=== PATIENT | female | born 1945 | race Caucasian/White ===

== ENCOUNTER 2018-04-18 18:21 | Outpatient (REF) | payer MEDICARE, SELFPAY ==
[2018-04-18 19:21] LABS: HCT 36.1 % (36.0-46.0); HGB 11.6 g/dL (12.0-15.5); Mean Corp. HGB Concentration 32.1 g/dL (32.0-36.0); Mean Corpuscular Hemoglobin 31.1 pg (27.0-33.0); Mean Corpuscular Volume 96.8 fL (80-95); Platelet Count 250 x1000/uL (130-400); RBC 3.73 m/cumm (4.00-5.20); RBC Distribution Width 13.3 % (11.7-14.6)
[2018-04-18 19:37] LABS: ALT 26 U/L (12-78); AST 25 U/L (15-37); Albumin 3.7 g/dL (3.4-5.0); Alkaline Phosphatase 120 U/L (46-116); Anion Gap 9.7 mmol/L (3-11); BUN 39 mg/dL (7-18); Bilirubin, Total 0.3 mg/dL (0.2-1.0); CO2 27.3 mmol/L (21.0-32.0); CREATININE 1.25 mg/dL (0.55-1.02); Calcium 9.2 mg/dL (8.5-10.1); Chloride 103 mmol/L (98-107); Estimated GFR 42.13 (mL/min/1.73m2); Glucose 133 mg/dL (70-100); Potassium 4.3 mmol/L (3.5-5.1); Sodium 140 mmol/L (136-145); TSH 4.64 uIU/mL (0.358-3.74); Total Protein 7.5 g/dL (6.4-8.2)
[2018-04-22 11:21] LABS: AFP Tumor Marker <2.0 ng/mL (<8.1)
== END 2018-04-18 18:41 ==
LOC: NCHCN 18:21
PROVIDERS: PCP Internal Medicine; Visit Provider Internal Medicine
DX: E11.9 Type 2 diabetes mellitus without complications (principal); C22.0 Liver cell carcinoma; N39.0 Urinary tract infection, site not specified; F32.9 Major depressive disorder, single episode, unspecified; H53.2 Diplopia
CPT/HCPCS: 80053; 85027; 82105; 84443; 87086

== ENCOUNTER 2018-08-23 12:13 | Outpatient (REF) | payer MEDICARE, SELFPAY ==
[2018-08-23 20:12] LABS: Anion Gap 8.8 mmol/L (3-11); BUN 31 mg/dL (7-18); CO2 25.2 mmol/L (21.0-32.0); CREATININE 1.26 mg/dL (0.55-1.02); Calcium 8.9 mg/dL (8.5-10.1); Chloride 108 mmol/L (98-107); Estimated GFR 41.63 (mL/min/1.73m2); Glucose 195 mg/dL (70-100); Potassium 4.2 mmol/L (3.5-5.1); Sodium 142 mmol/L (136-145); TSH 3.72 uIU/mL (0.358-3.74); Vitamin B12 1293 pg/mL (193-986)
== END 2018-08-23 12:33 ==
LOC: NCHCN 12:13
PROVIDERS: PCP Internal Medicine; Visit Provider Internal Medicine
DX: I10 Essential (primary) hypertension (principal); E03.9 Hypothyroidism, unspecified; R25.2 Cramp and spasm
CPT/HCPCS: 80048; 82607; 83735; 84443

== ENCOUNTER 2019-07-08 11:02 | Outpatient (REF) | payer MEDICARE, SELFPAY ==
[2019-07-08 19:46] LABS: Abs Immature Grans 0.04 k/cumm (0.0-0.09); Absolute Basophil Count 0.01 k/cumm (0.0-0.2); Absolute Eosinophil Count 0.03 k/cumm (0.0-0.7); Absolute Monocyte Count 0.57 k/cumm (0.11-0.7); Absolute Neutrophil Count 6.11 k/cumm (1.2-6.7); Basophils % 0.1; Eosinophils % 0.4; HGB 11.2 g/dL (12.0-15.5); Immature Grans % 0.5 %; Lymphocytes % 11.7; Mean Corp. HGB Concentration 31.1 g/dL (32.0-36.0); Mean Corpuscular Hemoglobin 30.7 pg (27.0-33.0); Mean Corpuscular Volume 98.6 fL (80-95); Mean Platelet Volume 10.1 fL (8.0-11.0); Monocytes % 7.4; Neutrophils % 79.9; Platelet Count 322 x1000/uL (130-400); RBC 3.65 m/cumm (4.00-5.20); RBC Distribution Width 14.1 % (11.7-14.6); White Blood Cell Count 7.66 k/cumm (4.4-10.8)
[2019-07-08 19:54] LABS: ALT 20 U/L (14-59); AST 18 U/L (15-37); Albumin 3.5 g/dL (3.4-5.0); Alkaline Phosphatase 106 U/L (46-116); Anion Gap 8.1 mmol/L (3-11); BUN 27 mg/dL (7-18); Bilirubin, Total 0.3 mg/dL (0.2-1.0); CO2 27.9 mmol/L (21.0-32.0); CREATININE 1.63 mg/dL (0.55-1.02); Calcium 8.8 mg/dL (8.5-10.1); Chloride 104 mmol/L (98-107); Estimated GFR 30.84 (mL/min/1.73m2); Glucose 161 mg/dL (74-106); Sodium 140 mmol/L (136-145); Total Protein 6.8 g/dL (6.4-8.2)
[2019-07-08 20:49] LABS: Hemoglobin A1C 6.4 % (3.8-5.6)
== END 2019-07-08 11:22 ==
LOC: NCHCN 11:02
PROVIDERS: PCP Internal Medicine; Visit Provider Physician Assistant
DX: E11.9 Type 2 diabetes mellitus without complications (principal); C22.0 Liver cell carcinoma; K76.0 Fatty (change of) liver, not elsewhere classified
CPT/HCPCS: 80053; 83036; 85025

== ENCOUNTER 2019-09-17 14:47 | Outpatient (REF) | payer MEDICARE, SELFPAY ==
[2019-09-17 21:21] LABS: ALT 24 U/L (14-59); AST 20 U/L (15-37); Albumin 3.4 g/dL (3.4-5.0); Alkaline Phosphatase 104 U/L (46-116); Bilirubin, Direct 0.15 mg/dL (0.00-0.20); Bilirubin, Total 0.3 mg/dL (0.2-1.0); Total Protein 6.5 g/dL (6.4-8.2)
== END 2019-09-17 15:07 ==
LOC: NCHCN 14:47
PROVIDERS: PCP Internal Medicine; Visit Provider Internal Medicine
DX: R10.30 Lower abdominal pain, unspecified (principal); E86.0 Dehydration; I87.2 Venous insufficiency (chronic) (peripheral)
CPT/HCPCS: 80076

== ENCOUNTER 2019-11-19 17:55 | Outpatient (REF) | payer MEDICARE, SELFPAY ==
[2019-11-20 12:13] LABS: COMMENT (LAB VIEW ONLY) 168.49 mg/dL; Microalb ug/mg Crea 44.5 ug/mg Cr
== END 2019-11-19 18:15 ==
LOC: NCHCN 17:55
PROVIDERS: PCP Internal Medicine; Visit Provider Internal Medicine
DX: E11.9 Type 2 diabetes mellitus without complications (principal)
CPT/HCPCS: 82043; 82570

== ENCOUNTER 2020-03-02 09:07 | Outpatient (REF) | payer MEDICARE, SELFPAY ==
[2020-03-03 21:43] LABS: COVID-19 RT-PCR Result NEGATIVE (Negative)
== END 2020-03-02 09:27 ==
LOC: NCHCN 09:07
PROVIDERS: PCP Internal Medicine; Visit Provider Physician Assistant
DX: J06.9 Acute upper respiratory infection, unspecified (principal)
CPT/HCPCS: U0003

== ENCOUNTER 2020-03-17 18:24 | Outpatient (REF) | payer MEDICARE, SELFPAY ==
[2020-03-17 21:02] LABS: HCT 34.6 % (36.0-46.0); HGB 10.7 g/dL (11.2-15.7); MCH 28.2 pg (27.0-33.0); MCHC 30.9 % (32.0-36.0); MCV 91.1 fL (80-95); MPV 9.7 fL (8.0-11.0); Platelet Count 353 10^3/uL (130-400); RDW 12.7 % (11.7-14.6); RDW-SD 42.2 fL; WBC 9.09 10^3/uL (4.4-10.8)
[2020-03-17 21:09] LABS: Anion Gap 9.6 mmol/L (3-11); BUN 22 mg/dL (7-18); CO2 24.4 mmol/L (21.0-32.0); CREATININE 1.27 mg/dL (0.55-1.02); Calcium 8.8 mg/dL (8.5-10.1); Chloride 104 mmol/L (98-107); Estimated GFR 41.13 (mL/min/1.73m2); Glucose 136 mg/dL (74-106); Potassium 4.3 mmol/L (3.5-5.1); Sodium 138 mmol/L (136-145); TSH 2.46 uIU/mL (0.36-3.74); Uric Acid 5.6 mg/dL (2.6-6.0)
[2020-03-17 22:04] LABS: ESR 93 mm/hr (0-30)
[2020-03-18 17:10] LABS: Rheumatoid Factor 15.2 IU/mL (<12.0)
== END 2020-03-17 18:44 ==
LOC: NCHCN 18:24
PROVIDERS: PCP Internal Medicine; Visit Provider Internal Medicine
DX: E11.9 Type 2 diabetes mellitus without complications (principal); M06.9 Rheumatoid arthritis, unspecified; R51.9 Headache, unspecified
CPT/HCPCS: 80048; 85027; 85652; 84443; 84550; 86140; 86431

== ENCOUNTER 2020-03-31 22:06 | Outpatient (REF) | payer MEDICARE, SELFPAY ==
[2020-04-02 10:40] LABS: Hepatitis B Surface Ag Negative (Negative)
[2020-04-02 10:48] LABS: Hepatitis C Ab w Rflx HCV PCR Negative (Negative)
== END 2020-03-31 22:07 | disposition home or self-care (01) ==
LOC: NCHCN 22:06
PROVIDERS: PCP Internal Medicine; Visit Provider Internal Medicine
DX: R10.11 Right upper quadrant pain (principal)
CPT/HCPCS: 86803; 87340; 87341

== ENCOUNTER 2020-10-05 13:48 | Emergency (ER) | payer MEDICARE, OTHER, SELFPAY ==
[2020-10-05] VITALS (61 sets, daily range): BP systolic 84–139; BP diastolic 40–89; PULSE 68–103; RESP 7–21; O2SAT 92–98
--- NOTE | 2020-10-05 13:45 | RT.EKG_ITS ---
APPROVED REPORT Exam: Resting ECG Reason for Exam: low bp Patient Location: E HR:75 bpm ECG Measurements Heart Rate 75 AXIS [place] 149 P 60 QRSd 100 QRS 15 QT 413 T 116 QTc 462 Conclusion Sinus rhythm...normal P axis, V-rate 60- 99 Abnormal T, consider ischemia, lateral leads...T <-0.20mV, I aVL V5 V6 ST elevation, consider inferior injury...ST >0.08mV, II III aVF. T wave inversion in I and aVL. No STEMI. I have reviewed and interpreted ECG and agree with software generated interpretation.
--- NOTE | 2020-10-05 14:07 | W.ED.GENAD ---
Discharge Plan Disposition Patient Disposition: SNF (LEVEL 1) [facility] Condition: Stable Discharge Details Clinical Impression: Hypotension, Anemia Primary Care Provider: Lázaro Penn ED Provider: Lakeisha Kelley Home Meds and New Rx's Prescriptions: New metoprolol succinate 25 mg tablet extended release 24 hr 12.5 mg PO DAILY Qty: 20 RF: 0 Continued venlafaxine 75 MG capsule,extended release 24hr 75 mg PO DIRECTED PRNRF: 0 polyethylene glycol 3350 17 GM powder in packet 17 g PO BID RF: 0 venlafaxine 150 MG capsule,extended release 24hr 150 mg PO DAILY RF: 0 levothyroxine 88 MCG tablet 88 mcg PO DAILY RF: 0 melatonin-pyridoxine (vit B6) 1 TAB tablet 3 mg PO DAILY PRNRF: 0 insulin glargine [Lantus Solostar U-100 Insulin] 300 UNITS/3 ML insulin pen 14 units Sub-Q HS Qty: 30 RF: 0 fentanyl [Duragesic] 50 MCG patch 72 hour 50 mcg Transdermal DIRECTED Qty: 0 RF: 0 sennosides [Senokot] 1 TAB tablet 2 ea PO BID PRN (Reason: Constipation) Qty: 120 RF: 0 potassium chloride 10 mEq Capsule, Extended Release 10 meq PO BID RF: 0 prednisone 5 mg tablet 5 mg PO DAILY RF: 0 aspirin 81 mg Tablet,Delayed Release (Dr/Ec) 81 mg PO DAILY RF: 0 acetaminophen 500 mg Tablet 1,000 mg PO Q6H PRN (Reason: Pain) RF: 0 ascorbic acid (vitamin C) 500 mg Tablet 500 mg PO DAILY RF: 0 prednisone 1 mg tablet 1 mg PO DAILY RF: 0 pantoprazole 40 mg tablet,delayed release (DR/EC) 40 mg PO DAILY RF: 0 docusate sodium [Colace] 100 mg Capsule 100 mg PO BID RF: 0 gabapentin 300 mg capsule 300 mg TID RF: 0 hydroxychloroquine 200 mg Tablet 300 mg PO DAILY RF: 0 oxycodone 5 mg Tablet 5 mg PO Q4H PRN (Reason: Pain) RF: 0 rosuvastatin 20 mg Tablet 20 mg PO DAILY RF: 0 sitagliptin 50 mg Tablet 50 mg PO DAILY RF: 0 magnesium oxide 400 mg magnesium Capsule 200 mg PO DAILY RF: 0 Discontinued carvedilol 3.125 mg Tablet 3.125 mg PO BID RF: 0 furosemide 20 mg Tablet 20 mg PO BID RF: 0 losartan 100 mg Tablet 100 mg PO DAILY RF: 0 Discharge Instructions Instructions: Dehydration (ED), Anemia (ED) Additional Instructions: Your weakness and low blood pressure is likely associated with dehydration medication changes. Cardiology at [facility] has recommended that you stop your carvedilol, furosemide, losartan. Alternatively, they would like for you to begin extended release metoprolol at 12.5 mg. Please do not start the metoprolol until . I have also asked that you follow-up with cardiology here in the next 1 to 2 weeks for reevaluation. A referral for this has been sent. You will also need to have your labs rechecked on . Please discuss this further with your primary care provider. If you develop any new or worsening symptoms please seek care urgently once Referrals: Lázaro Penn [Primary Care Provider] - Discharge Data Discharge Date/Time-TO BE ENTERED AT DEPARTURE: 10/05/20 21:10 Medical Decision Making <ISMAEL Resendiz - Last Filed: 10/06/20 10:45> 75-year-old female resides at [facility], significant past medical history, recent CABG at [facility], presents for generalized weakness and hypotension. Upon arrival her blood pressure is 109/49 and she is asymptomatic. Clinically she appears slightly dry but otherwise appears well. Plan is to obtain IV access, give IV fluid, obtain orthostatics, and a cardiac work-up. Orthostatic vital signs were in fact positive. Laboratory values reveal white blood cell count of 10.24, hemoglobin 8.6 hematocrit 28.4, she was heme-negative on examination. Platelet count 383, potassium 5.2, BUN 47 with a creatinine of 1.6, GFR 31.42, patient is receiving 1 L IV fluid. Troponin less than 0.05, urinalysis clear. Symptoms could be secondary to her new medications, carvedilol and furosemide in conjunction with volume depletion. I do believe that the patient can be hydrated with a second liter of IV fluid, will recheck CMP, reach out to her cardiology team, and recheck orthostatics. Medical Records Medical records reviewed: Yes I reviewed the patient's medical records. Imaging Data Radiologic Study: Attestation: I personally reviewed and interpreted this imaging study as follows: Imaging: X-Ray Radiologist's impression: Exam(s) XR PORTABLE CHEST AP EXAM: XR PORTABLE CHEST AP CLINICAL HISTORY: hypotension TECHNIQUE: 2D digital imaging was performed. COMPARISON: CR ABD FLAT UPRIGHT PA CHEST from 06/19/2013 FINDINGS: The heart size is within normal limits for projection. Sternal wires and mediastinal surgical clips are seen. Lungs appear clear. Surgical clips are noted near the GE junction. IMPRESSION: No acute pulmonary findings. Lab Data Lab results reviewed: Yes I reviewed the patient's lab results. Labs: Laboratory Tests Range/Units 10/05/20 10/05/20 10/05/20 14:10 14:10 14:30 WBC (4.4-10.8) 10^3/uL 10.24 RBC (3.93-5.22) 10^6/uL 2.93 L Hgb (11.2-15.7) g/dL 8.6 L Hct (36.0-46.0) % 28.4 L MCV (80-95) fL 96.9 H MCH (27.0-33.0) pg 29.4 MCHC (32.0-36.0) % 30.3 L RDW (11.7-14.6) % 14.3 Plt Count (130-400) 10^3/uL 383 MPV (8.0-11.0) fL 8.7 Immature Gran % 0.9 Neutrophils % 84.4 Lymphocytes % 5.5 Monocytes % 4.9 Eosinophils % 3.9 Basophils % 0.4 Nucleated RBC % % 0 Absolute Neutrophils (1.2-6.7) 10^3/uL 8.65 H Absolute Lymphocytes (1.2-3.4) 10^3/uL 0.56 L Absolute Monocytes (0.1-0.8) 10^3/uL 0.50 Absolute Eosinophils (0.0-0.7) 10^3/uL 0.40 Absolute Basophils (0.0-0.2) 10^3/uL 0.04 Sodium (136-145) mmol/L 141 Potassium (3.5-5.1) mmol/L 5.2 H Chloride (98-107) mmol/L 108 H Carbon Dioxide (21.0-32.0) mmol/L 25.1 Anion Gap (3-11) mmol/L 7.9 BUN (7-18) mg/dL 47 H Creatinine (0.55-1.02) mg/dL 1.6 H Estimated GFR/1.73 m2 (mL/min/1.73m2) 31.42 Glucose (74-106) mg/dL 185 H Calcium (8.5-10.1) mg/dL 8.6 Magnesium (1.8-2.4) mg/dL 2.1 Total Bilirubin (0.2-1.0) mg/dL 0.1 L AST (15-37) U/L 36 ALT (14-59) U/L 30 Alkaline Phosphatase (46-116) U/L 133 H Troponin I (<0.06) ng/mL < 0.05 Total Protein (6.4-8.2) g/dL 6.6 Albumin (3.4-5.0) g/dL 2.6 L Urine Color (Yellow) Yellow Urine Clarity (Clear) Clear Urine pH (5-8) 5.0 Ur Specific [place] (1.005-1.025) 1.020 Urine Protein (Negative) mg/dL Negative Urine Ketones (Negative) mg/dL Negative Urine Blood (Negative) Negative Urine Nitrite (Negative) Negative Urine Bilirubin (Negative) Negative Urine Urobilinogen (Up TO 0.2) EU/dL 0.2 Ur Leukocyte Esterase (Negative) Negative Urine Glucose (Negative) mg/dL Negative ECG Data Attestation: I personally reviewed and interpreted this ECG (s) as follows: Interpretation: Sinus rhythm, ventricular of 75. Nonspecific T wave abnormalities, no STEMI <ISMAEL Lopez - Last Filed: 10/07/20 19:42> Care transitioned to myself from Dwayne Hudson PA-C with repeat troponin pending. Please see his initial note regarding history, presentation and exam. Repeat troponin remains less than 0.05. My primary concern at this time is that the patient has been weak and hypotensive associated with new medications. Will consult with cardiology at [facility]. Patient is feeling much improved after receiving hydration. Consulted with Dr. Troy at [facility] cardiology. She and I discussed her medication list and what is happening curently. She recommended cessation of the Lasix and Losartan. Recommended stopping Carvedilol and recommended Metoprolol XL 12.5QD. Advised starting the Metoprolol on (holding tomorrow). Recommended repeat labs on . She recommended cardiology f/u here in the next 1-2 weeks. She does not have f/u scheduled with cardiology at [facility] but recommended f/u here for convience. I discussed these recommendations with the patient. She agrees to medication changes. She would prefer to follow-up with cardiology here. I will asked her care management team to assist with close follow-up. [facility] 2 days. Strict return precautions were discussed. All the concerns were addressed and she is agreement this plan. Patient transferred back to rehabilitation center in stable condition. Feeling much improved. They will hold the metoprolol until as was advised by cardiology HPI <ISMAEL Resendiz - Last Filed: 10/06/20 10:45> General Mode of arrival: EMS. Date/Time Provider Initiated Documentation: 10/05/20 13:50. Limitations to Documentation: no limitations. Information obtained by: patient and EMS. HPI Narrative: This is a 75-year-old female, Prakash history is include liver cancer, diabetes, hypertension, depression, hyperlipidemia, anemia, hypothyroidism, obesity, recent CABG on 09-15-20 at [facility], subsequently discharged to [facility], presenting to the ER for generalized weakness and hypotension. Patient states that ever since the surgery she has had generalized weakness and hypotension worse with standing or ambulation. Today a blood pressure of 68/41 was taken by staff, EMS called and upon arrival was 110/60. Patient states that at rest she feels well but upon standing she feels worse. She denies recent illness or trauma. Reports that she has chest wall pain status post the procedure but denies any fever, headache, neck pain, new chest pain, shortness of breath, abdominal pain, nausea vomiting, pain or swelling her legs. She denies black tarry stools or bright red blood in her stools. Patient states that she feels well enough and would like to be discharged back to her facility. Related Data Home Medications Medication Instructions Recorded Confirmed levothyroxine 88 mcg PO DAILY 06/19/13 10/05/20 melatonin-pyridoxine (vit B6) 3 mg PO DAILY PRN 06/19/13 10/05/20 polyethylene glycol 3350 17 g PO BID 06/19/13 06/19/13 venlafaxine 75 mg PO DIRECTED PRN 06/19/13 10/05/20 venlafaxine 150 mg PO DAILY 06/19/13 10/05/20 fentanyl [Duragesic] 50 mcg TRANSDERMAL DIRECTED #0 06/22/13 06/19/13 insulin glargine [Lantus Solostar 14 units SUB-Q HS #30 syr 06/22/13 U-100 Insulin] sennosides [Senokot] 2 ea PO BID PRN #120 06/22/13 10/05/20 acetaminophen 1,000 mg PO Q6H PRN 10/05/20 10/05/20 ascorbic acid (vitamin C) 500 mg PO DAILY 10/05/20 10/05/20 aspirin 81 mg PO DAILY 10/05/20 10/05/20 docusate sodium [Colace] 100 mg PO BID 10/05/20 10/05/20 gabapentin 300 mg TID 10/05/20 10/05/20 hydroxychloroquine 300 mg PO DAILY 10/05/20 10/05/20 magnesium oxide 200 mg PO DAILY 10/05/20 10/05/20 metoprolol succinate 12.5 mg PO DAILY #20 tab 10/05/20 oxycodone 5 mg PO Q4H PRN 10/05/20 10/05/20 pantoprazole 40 mg PO DAILY 10/05/20 10/05/20 potassium chloride 10 meq PO BID 10/05/20 10/05/20 prednisone 1 mg PO DAILY 10/05/20 10/05/20 prednisone 5 mg PO DAILY 10/05/20 10/05/20 rosuvastatin 20 mg PO DAILY 10/05/20 10/05/20 sitagliptin 50 mg PO DAILY 10/05/20 10/05/20 Previous Rx's Medication Instructions Recorded fentanyl [Duragesic] 50 mcg TRANSDERMAL DIRECTED #0 06/22/13 insulin glargine [Lantus Solostar 14 units SUB-Q HS #30 syr 06/22/13 U-100 Insulin] sennosides [Senokot] 2 ea PO BID PRN #120 06/22/13 metoprolol succinate 12.5 mg PO DAILY #20 tab 10/05/20 Allergies Allergy/AdvReac Type Severity Reaction Status Date / Time trazodone AdvReac Severe Psychosis Unverified 06/19/13 16:32 zolpidem tartrate AdvReac Severe Psychosis Unverified 06/19/13 16:32 [From Corinne] General Stated Complaint: GenMedical JOO: 3 Review of Systems <ISMAEL Resendiz - Last Filed: 10/06/20 10:45> Constitutional Constitutional: Denies fatigue, Denies fever(s) and Denies headache(s) ENT Ears, Nose, Mouth, and Throat: Denies headache(s) and Denies neck pain Cardiovascular Cardiovascular: Reports chest pain and Denies dyspnea Respiratory Respiratory: Denies cough and Denies dyspnea Gastrointestinal Gastrointestinal: Denies abdominal pain, Denies nausea and Denies vomiting Genitourinary Genitourinary: Denies dysuria Musculoskeletal Musculoskeletal: Denies back pain and Denies neck pain Integumentary/Breasts Skin/Breast: Denies rash Neurologic Neurologic: Denies headache(s) and Reports weakness (Generalized) Endocrine Endocrine: Denies fatigue PFSH <ISMAEL Resendiz - Last Filed: 10/06/20 10:45> Social History Smoking/Tobacco Use Status: Never Smoking risk assessment performed?: Yes Alcohol Intake: never Drug use: Never Substance use type: does not use Do you feel safe at home: Yes Exam <ISMAEL Resendiz - Last Filed: 10/06/20 10:45> Const General: cooperative, healthy appearing, comfortable and no acute distress Orientation: alert and awake [facility] Head: normal to inspection, normocephalic and atraumatic Mouth: moist mucous membranes and moist mucous membranes abnormal (Slightly dry) Throat: posterior oropharynx normal Eyes General: appearance normal, both eyes and all related structures Alignment and Position: alignment normal Periorbital: periorbital findings normal Eyelids: eyelids normal Conjunctivae: conjunctivae normal Sclera: sclerae normal Cornea: corneas normal Pupils: PERRL EOM: EOM intact bilaterally Direct ophthalmoscopy: normal light reflex Neck Neck: normal visual inspection, full ROM, trachea midline and supple Chest Chest: other (Well-healing surgical incision, running vertically) Resp Effort & Inspection: normal respiratory effort and able to speak in complete sentences Auscultation: diminished lung sounds bilaterally in the lower lung sarmiento Cardio Rate: regular rate Rhythm: regular rhythm GI Palpation: soft and nontender Rectal Exam - female: visual inspection normal, normal sphincter tone and heme negative stool Back/Spine/Pelvis Back: No back tenderness Skin General skin exam: no rashes or lesions noted Neuro General: patient alert, patient awake, moves all extremities and no focal motor deficits Cognition: normal cognition Speech: speech normal Sensory Exam: no sensory deficits noted Extrem General: normal to inspection, full ROM, capillary refill normal, no pedal edema and no calf tenderness Psych Appearance: grossly normal Mental Status: mental status grossly normal Course <ISMAEL Resendiz - Last Filed: 10/06/20 10:45> Vital Signs Vital signs: Vital Signs Pulse 78 10/05/20 13:52 Respiratory Rate 16 10/05/20 13:52 Blood Pressure 109/49 L 10/05/20 13:52 Pulse Oximetry 96 10/05/20 13:52 Pulse 78 10/05/20 13:52 Respiratory Rate 16 10/05/20 13:52 Respiratory Effort Non-Labored 10/05/20 14:03 Blood Pressure 109/49 L 10/05/20 13:52 Pulse Oximetry 96 10/05/20 13:52 Oxygen Delivery Method Room Air 10/05/20 13:52 Oxygen Flow Rate 0 10/05/20 13:52 Pain Level 0 10/05/20 13:52 Sign Out <ISMAEL Resendiz - Last Filed: 10/06/20 10:45> Sign Out Data: Sign Out Comment: Recent CABG at [facility], now at [facility] rehab with generalized weakness, hypotension, positive orthostatic vital signs. Clinically she is dry. Receiving her first liter of IV fluid and can likely tolerate a second, will then recheck CMP, orthostatic vital signs, and reach out to her cardiology team at [facility]. Patient would prefer to be discharged home if at all possible Last updated by Dwayne Hudson PA at 10/05/20 16:40
[2020-10-05 14:28] LABS: Abs Immature Grans 0.09 10^3/uL (0.0-0.06); Absolute Basophil Count 0.04 10^3/uL (0.0-0.2); Absolute Lymphocyte Count 0.56 10^3/uL (1.2-3.4); Absolute Neutrophil Count 8.65 10^3/uL (1.2-6.7); Basophils % 0.4; Eosinophils % 3.9; HCT 28.4 % (36.0-46.0); HGB 8.6 g/dL (11.2-15.7); Immature Grans % 0.9; Lymphocytes % 5.5; MCH 29.4 pg (27.0-33.0); MCHC 30.3 % (32.0-36.0); MCV 96.9 fL (80-95); MPV 8.7 fL (8.0-11.0); Monocytes % 4.9; Neutrophils % 84.4; Nucleated RBC 0 %; Platelet Count 383 10^3/uL (130-400); RBC 2.93 10^6/uL (3.93-5.22); RDW 14.3 % (11.7-14.6); RDW-SD 50.6 fL; WBC 10.24 10^3/uL (4.4-10.8)
[2020-10-05 14:41] LABS: Bilirubin Negative (Negative); Blood Negative (Negative); Clarity Clear (Clear); Glucose Negative (Negative); Ketones Negative (Negative); Leukocyte Esterase Negative (Negative); Nitrite Negative (Negative); Urobilinogen 0.2 EU/dL (Up TO 0.2)
[2020-10-05 14:44] LABS: ALT 30 U/L (14-59); AST 36 U/L (15-37); Albumin 2.6 g/dL (3.4-5.0); Alkaline Phosphatase 133 U/L (46-116); Anion Gap 7.9 mmol/L (3-11); BUN 47 mg/dL (7-18); Bilirubin, Total 0.1 mg/dL (0.2-1.0); CO2 25.1 mmol/L (21.0-32.0); CREATININE 1.6 mg/dL (0.55-1.02); Calcium 8.6 mg/dL (8.5-10.1); Chloride 108 mmol/L (98-107); Estimated GFR 31.42 (mL/min/1.73m2); Glucose 185 mg/dL (74-106); Magnesium 2.1 mg/dL (1.8-2.4); Potassium 5.2 mmol/L (3.5-5.1); Sodium 141 mmol/L (136-145); Total Protein 6.6 g/dL (6.4-8.2)
[2020-10-05 14:45] LABS: Troponin I < 0.05 ng/mL (<0.06)
[2020-10-05] MEDS: Normal Saline 1,000 ML 1000 ML IV (15:13)
--- NOTE | 2020-10-05 15:15 | DI.RAD_ITS ---
Exam(s) XR PORTABLE CHEST AP EXAM: XR PORTABLE CHEST AP CLINICAL HISTORY: hypotension TECHNIQUE: 2D digital imaging was performed. COMPARISON: CR ABD FLAT UPRIGHT PA CHEST from 06/19/2013 FINDINGS: The heart size is within normal limits for projection. Sternal wires and mediastinal surgical clips are seen. Lungs appear clear. Surgical clips are noted near the GE junction. IMPRESSION: No acute pulmonary findings. DATA REPOSITORY: RADIATION DOSE DELIVERED:
--- NOTE | 2020-10-05 17:45 | RT.EKG_ITS ---
APPROVED REPORT Exam: Resting ECG Reason for Exam: repeat troponin Patient Location: E HR:74 bpm ECG Measurements Heart Rate 74 AXIS NM 155 P 55 QRSd 99 QRS 11 QT 384 T 106 QTc 427 Conclusion Sinus rhythm...normal P axis, V-rate 60- 99 Nonspecific T abnrm, anterolateral leads...T <-0.10mV, I aVL V2-V6. Less than 1mm ST depression and T wave inversion in I. 1mm ST depression and T wave inversion in aVL. No STEMI. No significant change from previous. I have reviewed and interpreted ECG and agree with software generated interpretation.
[2020-10-05 18:15] LABS: Troponin I < 0.05 ng/mL (<0.06)
[2020-10-05] MEDS: LORazepam 0.5 MG TAB PO (20:08)
== END 2020-10-05 21:10 | disposition skilled nursing facility (03) ==
PROVIDERS: Physician Assistant; Emergency Provider Physician Assistant; PCP Internal Medicine
DX: I95.9 Hypotension, unspecified (principal); D64.9 Anemia, unspecified; R53.1 Weakness
CPT/HCPCS: 80053; 93005; 96360; 99284; 71045; 81003; 83735; 84484; 85025; 93010

== ENCOUNTER 2020-10-07 16:43 | Outpatient (REF) | payer MEDICARE, SELFPAY ==
[2020-10-07 17:40] LABS: Abs Immature Grans 0.09 10^3/uL (0.0-0.06); Absolute Basophil Count 0.03 10^3/uL (0.0-0.2); Absolute Eosinophil Count 0.29 10^3/uL (0.0-0.7); Absolute Lymphocyte Count 0.77 10^3/uL (1.2-3.4); Absolute Monocyte Count 0.33 10^3/uL (0.1-0.8); Absolute Neutrophil Count 7.21 10^3/uL (1.2-6.7); Basophils % 0.3; Eosinophils % 3.3; HGB 8.3 g/dL (11.2-15.7); Lymphocytes % 8.8; MCH 29.3 pg (27.0-33.0); MCHC 29.6 % (32.0-36.0); MCV 98.9 fL (80-95); MPV 9.5 fL (8.0-11.0); Monocytes % 3.8; Neutrophils % 82.8; Nucleated RBC 0 %; Platelet Count 344 10^3/uL (130-400); RBC 2.83 10^6/uL (3.93-5.22); RDW 14.4 % (11.7-14.6); RDW-SD 52.2 fL; WBC 8.72 10^3/uL (4.4-10.8)
[2020-10-07 18:22] LABS: ALT 38 U/L (14-59); AST 38 U/L (15-37); Albumin 2.7 g/dL (3.4-5.0); Alkaline Phosphatase 145 U/L (46-116); Anion Gap 8.6 mmol/L (3-11); BUN 41 mg/dL (7-18); Bilirubin, Total 0.1 mg/dL (0.2-1.0); CO2 22.4 mmol/L (21.0-32.0); CREATININE 1.6 mg/dL (0.55-1.02); Calcium 8.5 mg/dL (8.5-10.1); Chloride 109 mmol/L (98-107); Estimated GFR 31.42 (mL/min/1.73m2); Glucose 227 mg/dL (74-106); Potassium 5.5 mmol/L (3.5-5.1); Sodium 140 mmol/L (136-145)
== END 2020-10-07 16:44 | disposition home or self-care (01) ==
LOC: LBN 16:43
PROVIDERS: PCP Internal Medicine; Visit Provider Family Medicine
DX: E86.0 Dehydration (principal); I21.4 Non-ST elevation (NSTEMI) myocardial infarction; D50.9 Iron deficiency anemia, unspecified
CPT/HCPCS: 80053; 85025

== ENCOUNTER 2020-11-19 00:09 | Outpatient (REF) | payer MEDICARE, SELFPAY ==
[2020-11-19 01:04] LABS: Bilirubin Negative (Negative); Blood Trace-lysed (Negative); Clarity Sl Cloudy (Clear); Glucose Negative (Negative); Ketones Negative (Negative); Leukocyte Esterase Small (Negative); Nitrite Positive (Negative); Specific Gravity 1.015 (1.005-1.025); Urobilinogen 0.2 EU/dL (Up TO 0.2); pH 5.5 (5-8)
[2020-11-19 01:15] LABS: WBC >50 HPF (0-5)
[2020-11-19 01:16] LABS: C & S Indicated? C&S Done As Ordered
== END 2020-11-19 00:10 | disposition home or self-care (01) ==
LOC: LBN 00:09
PROVIDERS: PCP Internal Medicine; Visit Provider Family Medicine
DX: R35.0 Frequency of micturition (principal)
CPT/HCPCS: 87077; 81003; 81015; 87086; 87186

== ENCOUNTER 2020-12-08 15:47 | Outpatient (REF) | payer MEDICARE, SELFPAY ==
[2020-12-08 19:49] LABS: Abs Immature Grans 0.04 10^3/uL (0.0-0.06); Absolute Basophil Count 0.03 10^3/uL (0.0-0.2); Absolute Eosinophil Count 0.09 10^3/uL (0.0-0.7); Absolute Lymphocyte Count 0.72 10^3/uL (1.2-3.4); Absolute Monocyte Count 0.36 10^3/uL (0.1-0.8); Basophils % 0.3; Eosinophils % 0.8; HCT 30.5 % (36.0-46.0); HGB 8.7 g/dL (11.2-15.7); Immature Grans % 0.4; Lymphocytes % 6.4; MCH 27.7 pg (27.0-33.0); MCHC 28.5 % (32.0-36.0); MCV 97.1 fL (80-95); MPV 9.7 fL (8.0-11.0); Monocytes % 3.2; Neutrophils % 88.9; Nucleated RBC 0 %; Platelet Count 286 10^3/uL (130-400); RBC 3.14 10^6/uL (3.93-5.22); RDW 16.4 % (11.7-14.6); RDW-SD 57.7 fL; WBC 11.31 10^3/uL (4.4-10.8)
[2020-12-08 19:52] LABS: Absolute Neutrophil Count 10.05 10^3/uL (1.2-6.7)
[2020-12-08 20:07] LABS: Anion Gap 11.4 mmol/L (3-11); BUN 27 mg/dL (7-18); CO2 22.6 mmol/L (21.0-32.0); CREATININE 1.2 mg/dL (0.55-1.02); Calcium 8.2 mg/dL (8.5-10.1); Chloride 110 mmol/L (98-107); Glucose 225 mg/dL (74-106); Sodium 144 mmol/L (136-145); TSH 0.77 uIU/mL (0.36-3.74)
== END 2020-12-08 15:48 | disposition home or self-care (01) ==
LOC: LBN 15:47
PROVIDERS: PCP Internal Medicine; Visit Provider Family Medicine
DX: I21.4 Non-ST elevation (NSTEMI) myocardial infarction (principal)
CPT/HCPCS: 80048; 84443; 85025